=== PATIENT | female | born 1970 | race Caucasian/White ===

== ENCOUNTER → 2018-09-05 16:42 | Outpatient (CLI) | payer SELFPAY, OTHER ==
--- NOTE | 2018-09-05 17:30 | MRI_ITS ---
STUDY: MRI CERVICAL SPINE WITHOUT CONTRAST REASON FOR EXAM: Female, 48 years old. Neck pain and dizziness with left shoulder pain TECHNIQUE: Standardized fat and water weighted pulse sequences were obtained in the sagittal and axial planes. COMPARISON: None FINDINGS: Normal foramen magnum and brainstem-cervical cord junction. Normal craniovertebral junction. Normal anterior atlantoaxial articulation. Normal odontoid process. Normal cervical lordosis. Normal vertebral bodies and posterior osseous elements. Incidental C3 vertebral body hemangioma. C2-3: Normal endplates. Normal disc height, signal and morphology. Normal central canal and intervertebral neural foramina. C3-4: Normal endplates. Normal disc height, signal and morphology. Normal central canal and intervertebral neural foramina. C4-5: Normal endplates. Normal disc height, signal and morphology. Normal central canal and intervertebral neural foramina. C5-6: Left foraminal disc protrusion with moderate left foraminal stenosis. C6-7: Normal endplates. Normal disc height, signal and morphology. Normal central canal and intervertebral neural foramina. C7-T1: Normal endplates. Normal disc height, signal and morphology. Normal central canal and intervertebral neural foramina. Normal cervical cord. 2.8 x 2.3 cm left thyroid mass. Ultrasound correlation is recommended. MRI/Spine Cervical (Routine) IMPRESSION: At C5-6, a left foraminal disc protrusion is present with moderate left foraminal stenosis. 2.8 x 2.3 cm left thyroid mass. Ultrasound correlation is recommended. Electronically Signed: Casey Andrade MD at 3:54 EDT Tel , Service support ,
[2018-09-05 18:06] LABS: Free T3 2.5 pg/mL (2.18-3.98)
[2018-09-06 14:44] LABS: Thyroid Stim Hormone (TSH) 4.18 uIU/mL (0.358-3.74)
== END ==
PROVIDERS: Family Provider Nurse Practitioner Family; PCP Nurse Practitioner Family; Referring Provider Nurse Practitioner Family; Visit Provider Nurse Practitioner Family
DX: M54.2 Cervicalgia (principal); G54.2 Cervical root disorders, not elsewhere classified; R94.6 Abnormal results of thyroid function studies
CPT/HCPCS: 36415; 72141; 84439; 84443; 84481

== ENCOUNTER → 2018-09-17 07:35 | Outpatient (CLI) | payer OTHER, SELFPAY ==
--- NOTE | 2018-09-17 07:47 | US_ITS ---
STUDY: THYROID ULTRASOUND REASON FOR EXAM: Female, 48 years old. Thyroid nodule seen on MRI of 09/05/2018. Hypothyroidism. TECHNIQUE: Ultrasound evaluation of the thyroid was performed with real-time and static cosme-scale imaging. COMPARISON: MRI cervical spine 09/05/2018. FINDINGS: RIGHT LOBE: The right lobe of the thyroid gland measures 4.5 x 1.9 x 1.7 cm. There is a homogeneous echotexture. There are no demonstrated solid, cystic or complex lesions. LEFT LOBE: The left lobe of the thyroid gland measures 5.8 x 2.6 x 2.4 cm. Mildly hypervascular 4.1 x 2.6 x 2.0 cm complex macrolobulated thyroid nodule containing central coarse dystrophic calcification, heterogeneously hypoechoic internal echotexture, minimal cystic features. ISTHMUS: The isthmus measures 3 mm, normal echotexture . US/Thyroid IMPRESSION: Suspicious left thyroid nodule requires biopsy. This nodule falls into the high suspicion pattern based on [place] [employer] Guidelines. Greatest dimension over 1 cm, ultrasound-guided FNA biopsy is required. Electronically Signed: Joe Jacobo, at 15:27 EST Tel , Service support ,
== END ==
PROVIDERS: Family Provider Nurse Practitioner Family; PCP Nurse Practitioner Family; Referring Provider Nurse Practitioner Family; Visit Provider Nurse Practitioner Family
DX: E07.9 Disorder of thyroid, unspecified (principal)
CPT/HCPCS: 76536

== ENCOUNTER → 2018-09-22 15:20 | Outpatient (CLI) | payer OTHER, SELFPAY ==
[2018-09-22 14:58] VITALS: BMI 26.9
--- NOTE | 2018-09-22 15:20 | ASPS_PTH ---
PATIENT: JESUS NUNEZ LOC: [facility] U#:[id number] AGE/SX: 55/F ROOM: RE09/22/[address]: Dr. Lexa Suh MD : 1970 BED: DIS: SPEC #: [id number] RECD: 09/23/18 11:34 STATUS: ZACKERY LOREN #: [id number] SMITA: 09/22/18 15:[address]: Lexa Suh DEPT: CYTOLOGY RECD BY: Joe Oates ENTERED: 09/23/18 11:34 SP TYPE: ASPIRATION OTHR DR: Martha Brown, CREW LEADER-C Tissues: Thyroid gland, NOS Procedures: Pap Stain (control) Special Stain Group II Cytology Other HEADER OPERATION: Left thyroid FNA PRE-OP DIAGNOSIS: Left thyroid nodule TISSUE SUBMITTED: Left thyroid slides DIAGNOSIS CYTOLOGY Left thyroid nodule, FNA (smears): Malignant cells present derived from papillary thyroid carcinoma. CRISTOBAL:phuong 09/24/18 COMMENT The lesion also has focal cystic component showing numerous macrophages. CYTOLOGY STUDY Slides are reviewed. CYTOLOGY GROSS Received are eight smears labeled with the patient's name and designated per the requisition as left thyroid. Submitted for staining. 09/23/18 TC:0 CPT: 46051 ADDENDUM ADDENDUM ADDENDUM ADDENDUM ADDENDUM ADDENDUM ADDENDUM ADDENDUM ADDENDUM ADDENDUM 10/14/2018 12:03 ADDENDUM 10/14/2018 12:03 ADDENDUM 10/14/2018 12:03 ADDENDUM 10/14/2018 12:03 ADDENDUM 10/14/2018 12:03 This addendum is added to incorporate an outside pathology consultation report. The case was examined at [facility] (#[id number]) and the following diagnosis was rendered. Left thyroid nodule, fine needle aspiration: Positive for malignant cells. Papillary thyroid carcinoma. Please see complete above mentioned consultation report in EMR
== END ==
PROVIDERS: Family Provider Nurse Practitioner Family; PCP Nurse Practitioner Family; Referring Provider Surgery; Visit Provider Surgery
DX: E04.1 Nontoxic single thyroid nodule (principal)
CPT/HCPCS: 88161; 88313

== ENCOUNTER → 2020-07-15 | Outpatient (CLI) | payer OTHER, SELFPAY ==
[2018-09-29 14:05] VITALS: BMI 26.9
--- NOTE | 2020-07-15 15:44 | CT_ITS ---
STUDY: CT ABDOMEN AND PELVIS WITH CONTRAST REASON FOR EXAM: Female, 50 years old. MID ABD PAIN AND DIARRHEA X COUPLE MONTHS RADIATION DOSAGE (If Supplied By Facility): CTDIvol = ( 12.835 ) mGy, DLP = ( 617.05 ) mGycm TECHNIQUE: Transaxial images were obtained from the dome of the diaphragm to the symphysis pubis with oral contrast. Oral Readi-CAT was administered. Sagittal and coronal images were reconstructed. Individualized dose optimization techniques were used for this CT. COMPARISON: None. FINDINGS: The visualized lung bases are unremarkable. The visualized portions of the heart are within normal limits. Normal liver with 1.1 cm cyst of the left lobe.. Normal gallbladder and extrahepatic biliary system. Normal spleen. Normal pancreas. Normal bilateral adrenal glands. No acute abnormalities of the kidneys. Tiny cortical cysts. Small cortical scars. 4 mm nonobstructing stone of the right upper pole. 3 mm nonobstructing stone in the left upper pole. No hydronephrosis. Normal visualized stomach. Normal small intestine. Normal colon. The appendix is visualized and appears normal. Normal abdominal aorta. Normal inferior vena cava. Normal retroperitoneum. Normal urinary bladder. Normal visualized uterus. Normal abdominal wall. Normal osseous structures. CT/Abdomen/Pelvis WITH Contrast IMPRESSION: No acute abnormalities. Nonobstructing renal stones. Electronically Signed: Ap Fontaine MD at 20:04 EDT , Service support ,
== END | disposition home or self-care (01) ==
PROVIDERS: PCP Nurse Practitioner Family; Referring Provider Nurse Practitioner Family; Visit Provider Nurse Practitioner Family
DX: K62.5 Hemorrhage of anus and rectum (principal); R10.32 Left lower quadrant pain; R19.4 Change in bowel habit
CPT/HCPCS: 74177; Q9967